=== PATIENT | female | born 1995 | race Caucasian/White ===

== ENCOUNTER 2019-04-16 14:20 | Inpatient (IN) ==
[~2019-04-16 14:20] MED LIST: *HR* FentaNYL (PF) 100 MCG/2 ML VIAL IVP PRN; Famotidine 20 MG/2 ML VIAL IVP PRN; Lidocaine 1% 20 ML MDV INFILT PRN; Metoclopramide 10 MG/2 ML VIAL IVP PRN; Naloxone 0.4 MG/ML INJ IVP PRN; Ondansetron 4 MG/2 ML VIAL IVP PRN
[2019-04-16] MEDS ORDERED: Oxytocin 20 units/ LR 1000 mL 20 UNIT/1,000 ML BAG IVC SCH (14:30)
[2019-04-16] MEDS ORDERED: Ringers Solution, Lactated 1,000 ML IVC SCH (14:30)
[2019-04-16 14:49] LABS: Basophils % 0.2 %; Eosinophils # 0.1 K/mcL (0.0-0.6); Hematocrit 41.2 % (35.3-44.9); Lymphocytes # 0.9 K/mcL (0.6-4.6); Lymphocytes % 10.1 %; Mean Corpuscular Hemoglobin 31.2 pg (28.0-33.3); Mean Corpuscular Volume 91.8 fL (83.0-100.0); Monocytes # 0.7 K/mcL (0.0-1.3); Neutrophils # 7.1 K/mcL (1.6-8.9); Platelet Count 195 K/mcL (140-400); Red Blood Count 4.49 M/mcL (3.82-4.97); Red Cell Distribution Width 13.1 % (11.5-14.5); Segmented Neutrophils % 79.7 %
[2019-04-16 14:59] LABS: Amphetamine Screen,Urine Negative ng/mL (Cutoff=1000); Barbiturate Screen,Urine Negative ng/mL (Cutoff=200); Benzodiazepines Screen,Urine Negative ng/mL (Cutoff=200); Cannabinoid Screen,Urine Negative ng/mL (Cutoff = 50); Cocaine Screen,Urine Negative ng/mL (Cutoff= 300); Opiate Screen,Urine Negative ng/mL (Cutoff=300); Phencyclidine Screen,Urine Negative ng/mL (Cutoff=25)
[2019-04-16] MEDS ORDERED: 0.9 % Sodium Chloride 500 ML IVC PRN (15:34)
[2019-04-16] MEDS ORDERED: Naloxone 0.4 MG/ML INJ IVP PRN (15:34)
[2019-04-16] MEDS ORDERED: Epidural Premix (fent/bupiv) 110 ML EP ONE (15:38)
[2019-04-16] MEDS ORDERED: Bupivacaine-MPF 0.5% 25 ML, FentaNYL (PF) 250 MCG in 0.9 % Sodium Chloride 80 ML EP SCH (15:45)
[2019-04-16] MEDS ORDERED: Epidural Premix (fent/bupiv) 110 ML EP SCH (16:00)
[2019-04-16] MEDS ORDERED: Famotidine 20 MG/2 ML VIAL IVP ONE (19:41)
[2019-04-16] MEDS ORDERED: Gentamicin 80 MG in 0.9 % Sodium Chloride 100 ML IVPB SCH (23:45)
[2019-04-17] MEDS ORDERED: Ampicillin 2 GM in 0.9 % Sodium Chloride Mini Bag 100 ML IVPB SCH
[2019-04-17] MEDS ORDERED: Acetaminophen 325 MG TABLET PO ONE (01:38)
[2019-04-17] MEDS ORDERED: Oxytocin 20 units/ LR 1000 mL 20 UNIT/1,000 ML BAG IVC SCH (05:23)
[2019-04-17] MEDS ORDERED: Lanolin 7 G OINT...G. TP PRN (05:23)
[2019-04-17] MEDS ORDERED: Benzocaine/Menthol 56 GM AEROSOL SPRAY TP PRN (05:23)
[2019-04-17] MEDS ORDERED: Acetaminophen 325 MG TABLET PO PRN (05:23)
[2019-04-17] MEDS: Ibuprofen 600 MG TABLET PO PRN ×2 (05:57→20:57)
[2019-04-17] MEDS ORDERED: Prenatal Vit/FA 1 EACH TABLET PO SCH (09:00)
[2019-04-18 08:13] VITALS: BP 110/61
== END 2019-04-18 14:00 | disposition home or self-care (01) ==
LOC: 1NENULAB → 1NENUOBS 04-17 05:21
PROVIDERS: ADMIT Advanced Practice Midwife; ATTEND Advanced Practice Midwife